=== PATIENT | female | born 1960 | race American Indian/Alaskan Native ===

== ENCOUNTER 2020-07-03 09:26 | Outpatient (CLI) | payer OTHER ==
--- NOTE | 2020-07-03 10:21 | XRay Report ---
Lumbar spine 3 views INDICATION: Low back pain IMPRESSION: Mild multilevel discogenic and facet arthropathy especially L5-S1 with there is mild bila teral neural foraminal narrowing. Signer Name: Curtis Kong MD Signed: 07/03/2020 10:16 AM Workstation Name: [id number]
--- NOTE | 2020-07-03 10:22 | XRay Report ---
XR hips BILAT 2V w/pelvis INDICATION / CLINICAL INFORMATION: BILATERAL HIP PAIN. COMPARISON: None available. FINDINGS: BONES/JOINT(S): No acute fracture or subluxation. 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 No focal bone lesions. SOFT TISSUES: No significant abnormality. ADDITIONAL FINDINGS: None. Signer Name: Clive Whitten MD Signed: 07/03/2020 10:17 AM Workstation Name: [id number]
== END 2020-07-03 09:27 | disposition home or self-care (01) ==
LOC: XRAY 09:26
PROVIDERS: ATTEND Internal Medicine
DX: Z02.71 Encounter for disability determination (principal); M16.0 Bilateral primary osteoarthritis of hip; M47.817 Spondylosis without myelopathy or radiculopathy, lumbosacral region; M48.07 Spinal stenosis, lumbosacral region; F41.0 Panic disorder [episodic paroxysmal anxiety]; F41.9 Anxiety disorder, unspecified
CPT/HCPCS: 72100; 73521